=== PATIENT | female | born 1975 | race Caucasian/White ===

== ENCOUNTER 2017-11-01 13:05 | Emergency (ER) | payer OTHER ==
[~2017-11-01] VITALS: Ht 165.1 cm; Wt 61.0 kg
[2017-11-01 13:29] VITALS: BP 148/88; PULSE 91; RESP 20; TEMP 98.7; O2SAT 97
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
[2017-11-01] MEDS ORDERED: DIAZEPAM 5 MG TAB PO ONE (13:45)
[2017-11-01] MEDS ORDERED: KETOROLAC TROMETHAMINE 60 MG/2 ML (IM) VIAL IM ONE (13:45)
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
[2017-11-01] MEDS ORDERED: TYLE325T PO (15:03)
[2017-11-01] MEDS ORDERED: TETANUS/DIPHTHERIA TOXOID ADULT 0.5 ML VIAL IM ONE (15:15)
== END 2017-11-01 15:49 | disposition home or self-care (01) ==
LOC: NEPD 13:05
DX: M79.622 Pain in left upper arm (principal); M54.2 Cervicalgia; V43.52XA Car driver injured in collision with other type car in traffic accident, initial encounter; Z23 Encounter for immunization
CPT/HCPCS: 73060; 90471; 90714; 96372; 99283; J1885